=== PATIENT | female | born 1970 | race Caucasian/White ===

== ENCOUNTER 2017-04-22 05:31 | Emergency (ER) | payer BC ==
[~2017-04-22] VITALS: Ht 152.4 cm; Wt 54.0 kg
[~2017-04-22 05:31] MED LIST: 1-ME1LIQ PO; ALPR.25 PO; HYDR-2768 PO; MECL25CH PO; ZOFR4TAB3 SL
[2017-04-22 05:41] VITALS: BP 125/72; PULSE 61; RESP 14; TEMP 97.2; O2SAT 100
[2017-04-22] MEDS ORDERED: SODIUM CHLOR 0.9% 1000 ML INJ 1,000 ML IV SCH (05:50)
--- NOTE | 2017-04-22 05:54 | PD ---
HPI Chief Complaint: abdominal pain Time Seen by Provider: 05:50 Travel History International Travel<30 days: No Contact w/Intl Traveler<30days: No Traveled to known affect area: No History of Present Illness HPI 46-year-old female presents to the emergency department by private transportation for complaint of severe right lower quadrant abdominal pain. Patient has had pain for 2 days. Pain is worsened over the past 24 hours to the point that this morning just prior to arrival to the emergency department she was having so much right lower quadrant abdominal pain she developed dizziness and then had a syncopal episode. Episode was not witnessed therefore unknown a seizure activity. No report of bladder or bowel incontinence. No report of tongue trauma. Patient denies any injury. Patient states she has had issues with the intestinal tract before but has never had a near passing out or passing out spell. Patient denies any chest pain or shortness of breath. No prior history of clotting disorder or cardiac disease. Patient does have family history of CAD and diabetes. Patient takes no prescription medications. Patient denies . Patient has prior history of uterine fibroids but denies history of ovarian cyst last menstrual period was normal for her in 1 week ago. Patient denies . The patient rates her pain 9/ 10 in intensity. Patient is identified if exacerbating or alleviating factors. No report of hematemesis coffee-ground emesis melena hematochezia. PFSH Past Medical History Narrative Medical Anxiety hypertension migraines uterine fibroids hypothyroidism; occasional alcohol use; nursing notes reviewed Anxiety: Yes Cardiovascular Problems: Yes (htn on meds) Gastrointestinal Disorders: Yes (IBS) Migraines: Yes Thyroid Disease: Yes Past Surgical History Gynecologic Surgery: Yes (CERVICAL ) Social History Alcohol Use: Yes (SOCIAL) Tobacco Use: No Substance Use: No Allergies-Medications (Allergen,Severity, Reaction): Coded Allergies: penicillin G (Unverified Allergy, Severe, 04/22/17) Reported Meds & Prescriptions Reported Meds & Active Scripts Active Reported Fioricet (Nltybtjlfx-Dnpaywksyxxvv-Hztymllk) 50-300-40 Mg Cap 1-2 Cap PO Q6H PRN Amlodipine (Amlodipine Besylate) 10 Mg Tab 10 Mg PO DAILY Propranolol (Propranolol HCl) 40 Mg Tab 40 Mg PO Q12HR Hydrochlorothiazide 12.5 Mg Tab 12.5 Mg PO DAILY Review of Systems Except as stated in HPI: all other systems reviewed are Neg General / Constitutional: No: Fever, Chills HENT: No: Congestion Cardiovascular: Positive: Syncope, No: Chest Pain or Discomfort, Diaphoresis Respiratory: No: Shortness of Breath, Pleuritic Pain Gastrointestinal: Positive: Nausea, Abdominal Pain, No: Vomiting, Diarrhea Genitourinary: No: Dysuria, Flank Pain Musculoskeletal: No: Myalgias, Arthralgias, Edema, Pain Skin: No Rash Neurologic: No: Weakness Psychiatric: No: Anxiety Endocrine: No: Heat Intolerance Hematologic/Lymphatic: No: Easy Bruising Physical Exam Narrative GENERAL: Well-developed well-nourished female in obvious discomfort holding her right lower quadrant. GCS 15. SKIN: Warm and dry. HEAD: Normocephalic. EYES: No scleral icterus. No injection or drainage. NECK: Supple, trachea midline. No JVD or lymphadenopathy. CARDIOVASCULAR: Regular rate and rhythm without murmurs, gallops, or rubs. RESPIRATORY: Breath sounds equal bilaterally. No accessory muscle use. GASTROINTESTINAL: Abdomen soft, right lower quadrant tenderness to palpation with voluntary guarding no rebound, nondistended. MUSCULOSKELETAL: No cyanosis, or edema. BACK: Nontender without obvious deformity. No CVA tenderness. Data Data Last Documented VS Vital Signs Date Time Temp Pulse Resp B/P (MAP) Pulse Ox O2 Delivery O2 Flow Rate FiO2 04/22/17 06:46 16 04/22/17 06:02 98 Room Air 04/22/17 05:41 97.2 61 Orders Orders Complete Blood Count With Diff (04/22/17 05:50) Comprehensive Metabolic Panel (04/22/17 05:50) Lipase (04/22/17 05:50) Lactic Acid (04/22/17 05:50) Urinalysis - C+S If Indicated (04/22/17 05:50) Ct Abd/Pel W Iv Contrast(Rout) (04/22/17 05:50) Iv Access Insert/Monitor (04/22/17 05:50) Ecg Monitoring (04/22/17 05:50) Oximetry (04/22/17 05:50) NPO (04/22/17 05:50) Ondansetron Inj (Zofran Inj) (04/22/17 06:00) Sodium Chlor 0.9% 1000 Ml Inj (Ns 1000 M (04/22/17 05:50) Sodium Chloride 0.9% Flush (Ns Flush) (04/22/17 06:00) Electrocardiogram (04/22/17 05:50) Chest, Single Ap (04/22/17 05:50) Ed Urine Pregnancytest Poc (04/22/17 05:50) Ct Brain W/O Iv Contrast(Rout) (04/22/17 ) Troponin I (04/22/17 05:50) Morphine Inj (Morphine Inj) (04/22/17 06:00) Iohexol 350 Inj (Omnipaque 350 Inj) (04/22/17 07:07) Labs Laboratory Tests Test 04/22/17 06:20 04/22/17 06:41 White Blood Count 7.0 TH/MM3 Red Blood Count 4.24 MIL/MM3 Hemoglobin 13.0 GM/DL Hematocrit 37.4 % Mean Corpuscular Volume 88.3 FL Mean Corpuscular Hemoglobin 30.6 PG Mean Corpuscular Hemoglobin Concent 34.7 % Red Cell Distribution Width 12.3 % Platelet Count 310 TH/MM3 Mean Platelet Volume 8.1 FL Neutrophils (%) (Auto) 74.1 % Lymphocytes (%) (Auto) 19.1 % Monocytes (%) (Auto) 5.2 % Eosinophils (%) (Auto) 1.2 % Basophils (%) (Auto) 0.4 % Neutrophils # (Auto) 5.2 TH/MM3 Lymphocytes # (Auto) 1.3 TH/MM3 Monocytes # (Auto) 0.4 TH/MM3 Eosinophils # (Auto) 0.1 TH/MM3 Basophils # (Auto) 0.0 TH/MM3 CBC Comment DIFF FINAL Differential Comment Blood Urea Nitrogen 12 MG/DL Creatinine 0.82 MG/DL Random Glucose 105 MG/DL Total Protein 8.3 GM/DL Albumin 3.8 GM/DL Calcium Level 9.2 MG/DL Alkaline Phosphatase 80 U/L Aspartate Amino Transf (AST/SGOT) 21 U/L Alanine Aminotransferase (ALT/SGPT) 20 U/L Total Bilirubin 0.3 MG/DL Sodium Level 136 MEQ/L Potassium Level 4.1 MEQ/L Chloride Level 104 MEQ/L Carbon Dioxide Level 22.7 MEQ/L Anion Gap 9 MEQ/L Estimat Glomerular Filtration Rate 75 ML/MIN Lactic Acid Level 1.9 mmol/L Troponin I LESS THAN 0.02 NG/ML Lipase 114 U/L Urine Collection Type CLEAN CATCH Urine Color YELLOW Urine Turbidity CLEAR Urine pH 8.5 Urine Specific [place] 1.012 Urine Protein TRACE mg/dL Urine Glucose (UA) NEG mg/dL Urine Ketones NEG mg/dL Urine Occult Blood NEG Urine Nitrite NEG Urine Bilirubin NEG Urine Leukocyte Esterase NEG Urine WBC 0-2 /hpf Urine Squamous Epithelial Cells 0-5 /hpf Microscopic Urinalysis Comment CULT NOT INDICATED MDM Medical Decision Making Medical Screen Exam Complete: Yes Emergency Medical Condition: Yes Medical Record Reviewed: Yes Interpretation(s) EKG sinus bradycardia rate 55 right bundle branch block no acute ST elevation injury pattern ( noted 06/15/15) Differential Diagnosis Abdominal pain, ruptured ovarian cyst, ectopic , atypical appendicitis , renal colic, bowel obstruction, syncope, PE, minor closed head injury, ICH, arrhythmia Narrative Course IV access obtained specimens collected and sent for resulting EKG performed shows sinus bradycardia with right bundle branch block it is been noted since ; no chest pain no pleuritic chest pain and no shortness of breath. Patient continues to complain of localized right lower quadrant abdominal pain CT abdomen and pelvis ordered to evaluate for abdominal/intrapelvic etiology of abdominal pain suspect patient's dizziness and syncope related to a vasovagal event with vasovagal syncope unlikely primary arrhythmia or CAD or seizure activity suspect due to severity of right lower quadrant pain caused herself to vagal causing some hypotension bradycardia and then brief syncopal episode. CT brain noncontrast ordered to evaluate for syncope and CT abdomen and pelvis ordered to evaluate for pelvic etiology/abdominal etiology of right lower quadrant pain on these imaging studies are pending and care signed over to oncoming physician Dr. Chamberlain @ [id number] Bauman MD Apr 22, 2017 05:54
[2017-04-22] MEDS ORDERED: MORPHINE SULFATE 2 MG/ML INJ IV PUSH ONE (06:00)
[2017-04-22] MEDS ORDERED: SODIUM CHLORIDE 0.9% FLUSH 10 ML FLUSH IV FLUSH PRN (06:00)
[2017-04-22] MEDS ORDERED: ONDANSETRON HCL 4 MG/2 ML VIAL IVP ONE (06:00)
[2017-04-22 06:02] VITALS: RESP 18; O2SAT 98
[2017-04-22] MEDS ORDERED: AMLO10TA2 PO (06:28)
[2017-04-22] MEDS ORDERED: HYDR12.56 PO (06:28)
[2017-04-22] MEDS ORDERED: PROP40TA3 PO (06:28)
[2017-04-22] MEDS ORDERED: BUTA1CAP PO (06:28)
--- NOTE | 2017-04-22 06:29 | RADRPT ---
EXAM DATE/TIME: 04/22/2017 06:10 [facility] COMPARISON: No previous studies available for comparison. INDICATIONS : Short of breath. Dizziness. MEDICAL HISTORY : None. SURGICAL HISTORY : None. ENCOUNTER: Initial ACUITY: 1 day PAIN SCORE: 0/10 LOCATION: Bilateral chest FINDINGS: A single view of the chest demonstrates the lungs to be symmetrically aerated without evidence of mas s, infiltrate or effusion. The cardiomediastinal contours are unremarkable. Osseous structures are intact. There are multiple overlying electrocardiogram leads. CONCLUSION: No acute disease. Venkat Resendez MD on April 22, 2017 at 6:27 Board Certified Radiologist. This report was verified electronically.
[2017-04-22 06:32] LABS: AUTOMATED NEUTROPHIL # 5.2 TH/MM3 (1.8-7.7); BASOPHIL % 0.4 % (0.0-2.0); EOSINOPHIL # 0.1 TH/MM3 (0-0.4); EOSINOPHIL % 1.2 % (0.0-4.0); HEMATOCRIT 37.4 % (35.0-46.0); LYMPH % 19.1 % (9.0-44.0); LYMPHOCYTE # 1.3 TH/MM3 (1.0-4.8); MEAN CELL VOLUME 88.3 FL (80.0-100.0); MEAN CORPUSCULAR HEMOGLOBIN 30.6 PG (27.0-34.0); MEAN CORPUSCULAR HGB CONC 34.7 % (32.0-36.0); MEAN PLATELET VOLUME 8.1 FL (7.0-11.0); MONO % 5.2 % (0.0-8.0); MONOCYTE # 0.4 TH/MM3 (0-0.9); NEUT % 74.1 % (16.0-70.0); PLATELET COUNT 310 TH/MM3 (150-450); RED BLOOD COUNT 4.24 MIL/MM3 (4.00-5.30); RED CELL DISTRIBUTION WIDTH 12.3 % (11.6-17.2)
[2017-04-22 06:39] LABS: CHLORIDE 104 MEQ/L (98-107); SODIUM (NA) 136 MEQ/L (136-145)
[2017-04-22 06:42] LABS: ALBUMIN 3.8 GM/DL (3.4-5.0); BICARBONATE 22.7 MEQ/L (21.0-32.0); CALCIUM 9.2 MG/DL (8.5-10.1); GLUCOSE,RANDOM 105 MG/DL (74-106)
[2017-04-22 06:43] LABS: BLOOD UREA NITROGEN 12 MG/DL (7-18)
[2017-04-22 06:45] LABS: ALT (GPT) 20 U/L (10-53); AST (GOT) 21 U/L (15-37); CREATININE 0.82 MG/DL (0.50-1.00); GLOMERULAR FILTRATION RATE 75 ML/MIN (>89)
[2017-04-22 06:46] LABS: BILIRUBIN, URINE NEG (NEG); BLOOD, URINE NEG (NEG); GLUCOSE,URINE NEG (NEG); KETONE, URINE NEG (NEG); NITRITE,URINE NEG (NEG); PH, URINE 8.5 (5.0-8.5); URINE LEUKOCYTE ESTERASE NEG (NEG)
[2017-04-22 06:47] LABS: TOTAL BILIRUBIN ADULT 0.3 MG/DL (0.2-1.0); TOTAL PROTEIN 8.3 GM/DL (6.4-8.2)
[2017-04-22 06:48] LABS: ALKALINE PHOSPHATASE 80 U/L (45-117)
[2017-04-22 06:50] LABS: URINE COLOR YELLOW (YELLW/STRAW)
[2017-04-22 06:50] LABS: TROPONIN I LESS THAN 0.02 NG/ML (0.02-0.05)
[2017-04-22 06:51] LABS: SQUAMOUS EPITHELIAL CELL URINE 0-5 /hpf (0-5); WBC, URINE 0-2 /hpf (0-5)
[2017-04-22] MEDS ORDERED: IOHEXOL 350 MG/ML 10 ML VIAL (for RAD DIAG) IVCONTRAST ONE (07:07)
[2017-04-22 07:19] VITALS: BP 137/66; PULSE 66; RESP 18; O2SAT 96
--- NOTE | 2017-04-22 07:21 | RADRPT ---
EXAM DATE/TIME: 04/22/2017 06:56 [facility] COMPARISON: No previous studies available for comparison. INDICATIONS : Dizziness and vomiting. RADIATION DOSE: 57.43 CTDIvol (mGy) MEDICAL HISTORY : Hypertension. Irritable bowel syndrome. SURGICAL HISTORY : None. ENCOUNTER: Initial ACUITY: 1 day PAIN SCALE: 0/10 LOCATION: cranial TECHNIQUE: Multiple contiguous axial images were obtained of the head. Using automated exposure control and adj ustment of the mA and/or kV according to patient size, radiation dose was kept as low as reasonably a chievable to obtain optimal diagnostic quality images. DICOM format image data is available electro nically for review and comparison. FINDINGS: CEREBRUM: The ventricles are normal. No evidence of midline shift, mass lesion, hemorrhage or acute infarction . No extra-axial fluid collections are seen. POSTERIOR FOSSA: The cerebellum and brainstem are intact. The 4th ventricle is midline. The cerebellopontine angle i s unremarkable. EXTRACRANIAL: Visualized sinuses are clear. SKULL: The calvaria is intact. No evidence of skull fracture. CONCLUSION: No acute intracranial abnormality is identified. Lionel Cuevas MD on April 22, 2017 at 7:18 Board Certified Radiologist. This report was verified electronically.
--- NOTE | 2017-04-22 07:28 | RADRPT ---
EXAM DATE/TIME: 04/22/2017 07:03 [facility] COMPARISON: No previous studies available for comparison. INDICATIONS : Right lower quadrant pain. IV CONTRAST: 95 cc Omnipaque 350 (iohexol) IV ORAL CONTRAST: No oral contrast ingested. RADIATION DOSE: 8.77 CTDIvol (mGy) MEDICAL HISTORY : Hypertension. Irritable bowel syndrome. SURGICAL HISTORY : None. ENCOUNTER: Initial ACUITY: 1 day PAIN SCALE: 9/10 LOCATION: Right lower quadrant TECHNIQUE: Volumetric scanning of the abdomen and pelvis was performed. Using automated exposure control and ad justment of the mA and/or kV according to patient size, radiation dose was kept as low as reasonably achievable to obtain optimal diagnostic quality images. DICOM format image data is available electro nically for review and comparison. FINDINGS: LOWER LUNGS: The visualized lower lungs are clear. LIVER: Homogeneous density without lesion. There is no dilation of the biliary tree. No calcified gallston es. SPLEEN: Normal size without lesion. PANCREAS: Within normal limits. KIDNEYS: Normal in size and shape. There is no mass, stone or hydronephrosis. ADRENAL GLANDS: Within normal limits. VASCULAR: There is no aortic aneurysm. BOWEL/MESENTERY: The stomach, small bowel, and colon demonstrate no acute abnormality. There is no free intraperitone al air or fluid. The terminal ileum has a normal appearance. There is a structure which may represent a very short appendix which demonstrates no abnormality. No abnormal appendix is identified. ABDOMINAL WALL: Within normal limits. RETROPERITONEUM: There is no lymphadenopathy. BLADDER: No wall thickening or mass. REPRODUCTIVE: Uterus is significantly enlarged and heterogeneous with a hypoenhancing mass is present. At least 2 m asses are identified measuring approximately 5.9 cm and 2.7 cm. There is a 2 cm right ovarian cystic lesion. INGUINAL: There is no lymphadenopathy or hernia. MUSCULOSKELETAL: No acute abnormality. There is a small bone island in the left sacrum. CONCLUSION: 1. No definite abnormality is identified to explain the right lower quadrant pain. Terminal ileum is within normal limits and no abnormal appendix is seen. 2. Very enlarged and heterogeneous uterus containing at least 2 masses measuring up to 5.9 cm. Althou gh incompletely characterized on this examination, these may represent leiomyomas. Additionally, ther e is a 2 cm cystic lesion in the right ovary. Lionel Cuevas MD on April 22, 2017 at 7:20 Board Certified Radiologist. This report was verified electronically.
[2017-04-22] MEDS ORDERED: TRAM-388 PO (07:52)
[2017-04-22] MEDS ORDERED: ZOFR4TAB3 SL (07:52)
--- NOTE | 2017-04-22 07:52 | PD ---
Physical Exam Date Seen by Provider: Apr 22, 2017 Time Seen by Provider: 07:00 Narrative Patient seen and initially evaluated by Dr. Bauman, please see her note for further details. Patient is here because of right-sided abdominal pain and syncopal episode. At this point, the syncopal episode was thought to be vasovagal. Patient did not have any significant dysrhythmias on evaluation and vital signs are stable in the ER. Her CAT scans are pending and signed out to me. Lab work did show a UTI. Laboratory Tests Test 04/22/17 06:20 04/22/17 06:41 Neutrophils (%) (Auto) 74.1 % (16.0-70.0) Total Protein 8.3 GM/DL (6.4-8.2) Estimat Glomerular Filtration Rate 75 ML/MIN (>89) Troponin I LESS THAN 0.02 NG/ML Last 24 hours Impressions Chest X-Ray 04/22/17 0550 Signed Impressions: Service Date/Time: Saturday, April 22, 2017 06:10 - CONCLUSION: No acute disease. Venkat Resendez MD Abdomen/Pelvis CT 04/22/17 0550 Signed Impressions: Service Date/Time: Saturday, April 22, 2017 07:03 - CONCLUSION: 1. No definite abnormality is identified to explain the right lower quadrant pain. Terminal ileum is within normal limits and no abnormal appendix is seen. 2. Very enlarged and heterogeneous uterus containing at least 2 masses measuring up to 5.9 cm. Although incompletely characterized on this examination, these may represent leiomyomas. Additionally, there is a 2 cm cystic lesion in the right ovary. Lionel Cuevas MD Head CT 04/22/17 0000 Signed Impressions: Service Date/Time: Saturday, April 22, 2017 06:56 - CONCLUSION: No acute intracranial abnormality is identified. Lionel Cuevas MD CT of the brain did not show any signs of acute intracranial processes. CAT scan shows what appears to be uterine leiomyomas and a right sided ovarian cyst likely causing the patient's symptoms. At this point, I have discussed the findings with the patient and have offered to admit her as an observation for pain control since she has required multiple doses of pain medications. However , she states that she feels more comfortable going home. My plan would be to release the patient home with symptomatic relief her pain. She should follow- up with [facility] and primary care doctor after this visit. Return for any worsening in pain, vomiting, or new symptoms as needed. The plan has been discussed with her and she states understanding. Data Data Last Documented VS Vital Signs Date Time Temp Pulse Resp B/P (MAP) Pulse Ox O2 Delivery O2 Flow Rate FiO2 04/22/17 07:19 66 18 137/66 (89) 96 Room Air 04/22/17 05:41 97.2 Orders Orders Complete Blood Count With Diff (04/22/17 05:50) Comprehensive Metabolic Panel (04/22/17 05:50) Lipase (04/22/17 05:50) Lactic Acid (04/22/17 05:50) Urinalysis - C+S If Indicated (04/22/17 05:50) Ct Abd/Pel W Iv Contrast(Rout) (04/22/17 05:50) Iv Access Insert/Monitor (04/22/17 05:50) Ecg Monitoring (04/22/17 05:50) Oximetry (04/22/17 05:50) NPO (04/22/17 05:50) Ondansetron Inj (Zofran Inj) (04/22/17 06:00) Sodium Chlor 0.9% 1000 Ml Inj (Ns 1000 M (04/22/17 05:50) Sodium Chloride 0.9% Flush (Ns Flush) (04/22/17 06:00) Electrocardiogram (04/22/17 05:50) Chest, Single Ap (04/22/17 05:50) Ed Urine Pregnancytest Poc (04/22/17 05:50) Ct Brain W/O Iv Contrast(Rout) (04/22/17 ) Troponin I (04/22/17 05:50) Morphine Inj (Morphine Inj) (04/22/17 06:00) Iohexol 350 Inj (Omnipaque 350 Inj) (04/22/17 07:07) Ed Discharge Order (04/22/17 07:46) Labs Laboratory Tests Test 04/22/17 06:20 04/22/17 06:41 White Blood Count 7.0 TH/MM3 Red Blood Count 4.24 MIL/MM3 Hemoglobin 13.0 GM/DL Hematocrit 37.4 % Mean Corpuscular Volume 88.3 FL Mean Corpuscular Hemoglobin 30.6 PG Mean Corpuscular Hemoglobin Concent 34.7 % Red Cell Distribution Width 12.3 % Platelet Count 310 TH/MM3 Mean Platelet Volume 8.1 FL Neutrophils (%) (Auto) 74.1 % Lymphocytes (%) (Auto) 19.1 % Monocytes (%) (Auto) 5.2 % Eosinophils (%) (Auto) 1.2 % Basophils (%) (Auto) 0.4 % Neutrophils # (Auto) 5.2 TH/MM3 Lymphocytes # (Auto) 1.3 TH/MM3 Monocytes # (Auto) 0.4 TH/MM3 Eosinophils # (Auto) 0.1 TH/MM3 Basophils # (Auto) 0.0 TH/MM3 CBC Comment DIFF FINAL Differential Comment Blood Urea Nitrogen 12 MG/DL Creatinine 0.82 MG/DL Random Glucose 105 MG/DL Total Protein 8.3 GM/DL Albumin 3.8 GM/DL Calcium Level 9.2 MG/DL Alkaline Phosphatase 80 U/L Aspartate Amino Transf (AST/SGOT) 21 U/L Alanine Aminotransferase (ALT/SGPT) 20 U/L Total Bilirubin 0.3 MG/DL Sodium Level 136 MEQ/L Potassium Level 4.1 MEQ/L Chloride Level 104 MEQ/L Carbon Dioxide Level 22.7 MEQ/L Anion Gap 9 MEQ/L Estimat Glomerular Filtration Rate 75 ML/MIN Lactic Acid Level 1.9 mmol/L Troponin I LESS THAN 0.02 NG/ML Lipase 114 U/L Urine Collection Type CLEAN CATCH Urine Color YELLOW Urine Turbidity CLEAR Urine pH 8.5 Urine Specific [place] 1.012 Urine Protein TRACE mg/dL Urine Glucose (UA) NEG mg/dL Urine Ketones NEG mg/dL Urine Occult Blood NEG Urine Nitrite NEG Urine Bilirubin NEG Urine Leukocyte Esterase NEG Urine WBC 0-2 /hpf Urine Squamous Epithelial Cells 0-5 /hpf Microscopic Urinalysis Comment CULT NOT INDICATED [facility] Medical Record Reviewed: Yes Supervised Visit with CYNDEE: No Diagnosis Primary Impression: Abdominal pain Additional Impressions: Ovarian cyst Syncope Med/Other Pt SpecificInfo: Prescription(s) given Scripts Tramadol-Acetaminophen (Tramadol-Acetaminophen) 37.5-325 mg Tab 1 TAB PO Q6H Y for PAIN, #14 TAB 0 Refills Prov: Armin Demarco MD 04/22/17 Ondansetron Odt (Zofran Odt) 4 Mg Tab 4 MG SL Q6HR Y for Nausea/Vomiting, #7 TAB 0 Refills Prov: Armin Demarco MD 04/22/17 Disposition: 01 DISCHARGE HOME Condition: Stable Armin Demarco MD Apr 22, 2017 07:52
[2017-04-22 08:05] VITALS: BP 132/71
--- NOTE | 2017-04-22 18:42 | EKG ---
Date Performed: 04/22/2017 Time Performed: 06:04:22 PTAGE: 46 years EKG: SINUS BRADYCARDIA RIGHT BUNDLE BRANCH BLOCK ABNORMAL ECG Since the prior tracing, there has been no significant change PREVIOUS TRACING : 06/15/2015 07.47 DOCTOR: Jocelyn House Interpretating Date/Time 04/22/2017 18:40:01
== END 2017-04-22 08:21 | disposition home or self-care (01) ==
LOC: PHED 05:31
DX: R10.31 Right lower quadrant pain (principal); N83.201 Unspecified ovarian cyst, right side; R55 Syncope and collapse; R00.1 Bradycardia, unspecified; I45.10 Unspecified right bundle-branch block; R94.31 Abnormal electrocardiogram [ECG] [EKG]; I10 Essential (primary) hypertension; E03.9 Hypothyroidism, unspecified; Z86.59 Personal history of other mental and behavioral disorders; Z87.19 Personal history of other diseases of the digestive system; Z86.69 Personal history of other diseases of the nervous system and sense organs
CPT/HCPCS: 70450; 71045; 74177; 80053; 81001; 83605; 83690; 84484; 84703; 85025; 93005; 96374; 96375; 99285; J2270; J2405; J7030; Q9967